=== PATIENT | female | born 1965 ===

== ENCOUNTER → 2021-04-22 13:37 | Outpatient (CLI) | payer OTHER, SELFPAY ==
--- NOTE | 2021-04-22 13:45 | DI.US.S_ITS ---
PROCEDURE: US PELVIC COMPLETE INDICATIONS: PELVIC PAIN TECHNIQUE: Real-time scanning was performed of the pelvic organs, with image documentation. Additional endovaginal scanning was necessary due to incomplete visualization of the adnexal and endometrial structures by transabdominal scanning. COMPARISON: None. FINDINGS: Uterus: Uterus is anteverted and measures 7 x 2.4 x 3.5 cm. The endometrium measures 0.2 cm in combined thickness. There is a left paracentral subserosal fibroid measuring 4.6 x 4.1 x 5 cm and a right anterior subserosal fibroid measuring 2.6 x 2.1 x 3.2 cm. Ovaries: The right ovary measures 2.6 x 1.1 x 1.3 cm and the left ovary measures 3 x 0.7 x 1.8 cm. No adnexal masses. There is patent arterial flow demonstrated within the ovaries. Other: No free fluid in the pelvis. IMPRESSION: 1. Subserosal uterine fibroids as described. 2. No adnexal masses. Dictated by: Brendan Dockery M.D. on 04/22/2021 at 17:18 Approved by: Brendan Dockery M.D. on 04/22/2021 at 17:20
== END ==
PROVIDERS: PCP Physician Assistant; Referring Provider Physician Assistant; Visit Provider Physician Assistant
DX: R10.2 Pelvic and perineal pain (principal); D25.2 Subserosal leiomyoma of uterus; Z12.39 Encounter for other screening for malignant neoplasm of breast; Z12.4 Encounter for screening for malignant neoplasm of cervix; Z11.51 Encounter for screening for human papillomavirus (HPV); B19.10 Unspecified viral hepatitis B without hepatic coma; N83.209 Unspecified ovarian cyst, unspecified side
CPT/HCPCS: 76830; 76856

== ENCOUNTER → 2021-06-03 13:43 | Outpatient (CLI) | payer OTHER, SELFPAY ==
--- NOTE | 2021-06-03 13:44 | DI.MG.S_ITS ---
BILATERAL DIGITAL SCREENING MAMMOGRAM 3D/2D WITH CAD: 06/03/2021 CLINICAL: Routine screening. Comparison is made to exams dated: 05/09/2019 mammogram, 08/29/2018 mammogram, and 07/25/2018 mammogram - outside facility. The tissue of both breasts is heterogeneously dense. This may lower the sensitivity of mammography. Current study was also evaluated with a Computer Aided Detection (CAD) system. No significant masses, calcifications, or other findings are seen in either breast. There has been no significant interval change. IMPRESSION: NEGATIVE There is no mammographic evidence of malignancy. A 1 year screening mammogram is recommended. This exam was interpreted at Station ID: [id number]. NOTE: For mammograms, a report in lay terms will be sent to the patient. Approximately 15% of breast malignancies will not be visualized mammographically. In the management of a palpable breast mass, a negative mammogram must not discourage biopsy of a clinically suspicious lesion. Electronically Signed By: Sanford [email or web address]:06/03/2021 14:50:58 letter sent: Normal Exam ACR BI-RADS Category 1: Negative [id number]
== END ==
PROVIDERS: PCP Physician Assistant; Referring Provider Physician Assistant; Visit Provider Physician Assistant
DX: Z12.31 Encounter for screening mammogram for malignant neoplasm of breast (principal)
CPT/HCPCS: 77063; 77067